=== PATIENT | male | born 1995 | race Caucasian/White ===

== ENCOUNTER 2023-06-11 19:54 | Emergency (ER) | payer SELFPAY ==
[2023-06-11 20:02] VITALS: TEMP 99.3; BMI 25.8
[2023-06-11 22:07] LABS: BASO % 0.9 % (0-2.0); EOS % 0.6 % (0-4.5); HEMOGLOBIN 13.9 GM/dL (11.7-16.9); LYMPH % 20.5 % (8-40); MCH 29.6 pg (25.7-33.7); MCHC 33.2 g/dl (32.0-35.9); MEAN CELL VOLUME 89.3 fl (80-96); MEAN PLT VOLUME 8.8 fl (7.5-11.1); MONO % 8.7 % (3.8-10.2); NEUT % 69.3 % (42.8-82.8); PLATELET COUNT 209 10^3/uL (134-434); RBC 4.71 M/mm3 (4.00-5.60); RDW 12.9 % (11.9-15.9); WHITE BLOOD COUNT 11.6 K/mm3 (4.0-10.0)
[2023-06-11 22:40] LABS: POTASSIUM 3.8 mmol/L (3.5-5.1)
[2023-06-11 22:42] LABS: CALCIUM 9.6 mg/dL (8.5-10.1)
[2023-06-11 22:43] LABS: ALBUMIN 4.2 g/dl (3.4-5.0); BLOOD UREA NITROGEN 11.8 mg/dL (7-18)
[2023-06-11 22:46] LABS: CREATININE 0.9 mg/dL (0.55-1.3); PHOSPHOROUS 3.5 mg/dL (2.5-4.9)
[2023-06-11 22:47] LABS: BILIRUBIN,TOTAL 0.8 mg/dL (0.2-1)
[2023-06-11 23:44] VITALS: BP 110/70; PULSE 97; RESP 19
== END 2023-06-11 23:39 | disposition home or self-care (01) ==
LOC: JER 19:54
DX: F41.9 Anxiety disorder, unspecified (principal); R00.2 Palpitations
CPT/HCPCS: 36415; 71046-TC-FY; 80053; 83735; 84100; 84439; 84443; 84484; 85025; 93005; 93010; 99285-25